=== PATIENT | female | born 1955 | race Caucasian/White ===

== ENCOUNTER 2018-10-25 20:22 | Emergency (ER) | payer MEDICARE, OTHER ==
[~2018-10-25] VITALS: Ht 170.2 cm; Wt 89.7 kg
[~2018-10-25 20:22] MED LIST: ATOR10TA23; ESOM20CA; FLUO40CA10; FOLI-49; GABA300C; LEVO125T
[2018-10-25 20:50] VITALS: Ht 170.2 cm; Wt 89.7 kg
[2018-10-25] MEDS ORDERED: HYDROCODONE/APAP (5/325) TAB PO ONE (22:00)
[2018-10-25] MEDS ORDERED: ACETAMINOPHEN 325 MG TAB PO ONE (22:00)
[2018-10-25] MEDS ORDERED: IBUPROFEN 200 MG TAB PO ONE (22:00)
[2018-10-26] MEDS ORDERED: TRAM50TA2 PO (00:06)
--- NOTE | 2018-10-26 00:10 | ERD ---
ER Documentation Chief Complaint Chief Complaint s/p fall yesterday. c/o left side cp, lft shoulder and arm pain. HPI 63-year-old female who sustained a mechanical fall on a curb yesterday. She landed on her left side. She has left shoulder pain and left rib pain. She denies hemoptysis, head injury, neck pain, weakness or deficits. ROS All systems reviewed and are negative except as per history of present illness. Medications Home Meds Active Scripts Tramadol HCl (Tramadol HCl) 50 Mg Tablet, 50 MG PO Q4 PRN for PAIN, #15 TAB Prov:BRAD CUMMINS MD 10/26/18 Reported Medications Folic Acid* (Folic Acid*) 1 Mg Tablet 06/27/12 Gabapentin* (Neurontin*) 300 Mg Capsule, 2 06/27/12 Atorvastatin (Lipitor) 10 Mg Tablet 06/27/12 Esomeprazole Mag Trihydrate (Nexium) 20 Mg Capsule. 06/27/12 Levothyroxine Sodium* (Synthroid*) 125 Mcg Tablet 06/27/12 Fluoxetine Hcl* (Prozac*) 40 Mg Capsule 06/27/12 Allergies Allergies: Coded Allergies: No Known Drug Allergies (Verified Allergy, Unknown, 10/25/18) PMhx/Soc History of Surgery: Yes (QUITA KNEE, RIGH SHOULDER, HYSTERECTOMY, APPENDECTOMY) Anesthesia Reaction: No Hx Neurological Disorder: No Hx Respiratory Disorders: No Hx Cardiac Disorders: Yes (CHOLESTEROL) Hx Psychiatric Problems: No Hx Miscellaneous Medical Probl: Yes (DEPRESSION, HYPOTHYROID) Hx Alcohol Use: No Hx Substance Use: No Hx Tobacco Use: No Smoking Status: Never smoker FmHx Family History: No diabetes, No coronary disease, No other Physical Exam Vitals Vital Signs Date Temp Pulse Resp B/P (MAP) Pulse Ox O2 O2 Flow FiO2 Time Delivery Rate 10/25/18 98.0 83 22 120/63 100 20:50 (82) Physical Exam Const: No acute distress Head: Atraumatic Eyes: Normal Conjunctiva ENT: Normal External Ears, Nose and Mouth. Neck: Full range of motion. No meningismus. Resp: Clear to auscultation bilaterally Cardio: Regular rate and rhythm, no murmurs. Tenderness left T10 area. No crepitance, ecchymosis. Abd: Soft, non tender, non distended. Normal bowel sounds Skin: No petechiae or rashes Back: No midline or flank tenderness Ext: No cyanosis, or edema. Tenderness left shoulder capsule without deformities, restricted range of motion set mildly due to pain, deficits. Neur: Awake and alert Psych: Normal Mood and Affect Results 24 hrs Current Medications Medications Dose Sig/Clarita Start Time Status Last (Trade) Ordered Route PRN Stop Time Admin Dose Reason Admin 1 tab ONCE ONCE 10/25/18 DC Acetaminophen PO 22:00 / 10/25/18 22:00 Hydrocodone Bitart ([place] (5/325)) Ibuprofen 400 mg ONCE ONCE 10/25/18 DC (Motrin) PO 22:00 10/25/18 22:00 650 mg ONCE ONCE 10/25/18 DC 10/25/18 Acetaminophen PO 22:00 22:02 (Tylenol 10/25/18 22:01 Tab) Procedures/MDM EKG: Rate/Rhythm: Normal Sinus Rhythm . rate equals 81. QRS, ST, T-waves: No changes consistent w/ acute ischemia Impression: No evidence of ischemia or arrhythmia X-ray left shoulder 3V Interpreted by me: Bones: No fracture Joints: No dislocation Foreign body: None. Impression-normal left shoulder X-ray left ribs 2V Interpreted by me: Soft Tissue: No acute abnormalities Bones: No acute abnormalities Mediastinum/Cardiac Silhouette/Lungs:No acute abnormalities. Impression-normal left rib x-ray. Patient was given Tylenol for pain. Patient presents with left shoulder pain left rib pain after mechanical fall yesterday. She has no signs of head injury, deficits, neck injury, additional concerning signs or symptoms. She will tr eated with tramadol, further observation at home and return precautions. The patient was stable with no new complaints during the ER course. Clinically, there is no current evidence to suggest meningitis, sepsis, acute abdomen, pneumonia, stroke, acute coronary syndrome, pulmonary embolism, aortic dissection or any other emergent condition appearing to require further evaluation or hospitalization. Patient counseled regarding my diagnostic impression and care plan. Prior to discharge all questions answered. Pt agrees with treatment plan and understands strict return precautions. Pt is instructed to follow up with primary care provider within 24-48 hours. Precautionary instructions provided including instructions to return to the ER if not improving or for any worsening or changing symptoms or concerns. Departure Diagnosis: Primary Impression: Rib contusion Encounter type: initial encounter Laterality: left Qualified Codes: S20.212A - Contusion of left front wall of thorax, initial encounter Additional Impression: Sprain of shoulder, left Encounter type: initial encounter Shoulder sprain type: unspecified sprain Qualified Codes: S43.402A - Unspecified sprain of left shoulder joint, initial encounter Condition: Stable Patient Instructions: Rib Contusion, Shoulder Contusion Referrals: AUSTIN ADKINS MD Additional Instructions: X-rays read as normal. See primary doctor orthopedist for pain next week. Recheck otherwise for new or worsening symptoms. BRAD CUMMINS MD Oct 26, 2018 00:10
[2018-10-26 00:28] VITALS: BP 138/71; PULSE 83; RESP 16
== END 2018-10-26 00:29 | disposition home or self-care (01) ==
LOC: FTE 20:22
DX: S20.212A Contusion of left front wall of thorax, initial encounter (principal); S43.402A Unspecified sprain of left shoulder joint, initial encounter; E03.9 Hypothyroidism, unspecified; W18.39XA Other fall on same level, initial encounter; Y92.9 Unspecified place or not applicable
CPT/HCPCS: 71100; 73030